=== PATIENT | male | born 1970 | race Caucasian/White ===

== ENCOUNTER 2016-06-19 06:00 | Day surgery (SDC) | payer OTHER ==
[2016-06-19] MEDS ORDERED: LACTATED RINGERS 1,000 ML ONE (06:48)
[2016-06-19] MEDS ORDERED: SODIUM CHL 0.9% 100ML MINI-BAG 100 ML IVPB ONE (06:48)
[2016-06-19] MEDS ORDERED: ceFAZolin SODIUM 1 GM VIAL ONE (06:48)
[2016-06-19] MEDS ORDERED: BUPIVACAINE 0.25% W/EPI 50 ML VIAL INJ ONE (07:29)
[2016-06-19] MEDS ORDERED: HEPARIN SODIUM (PORCINE) 10,000 UNITS/ML VIAL ONE (07:29)
[2016-06-19] MEDS ORDERED: fentaNYL CITRATE INJ 50 MCG/ML AMP ONE (07:36)
[2016-06-19] MEDS ORDERED: LIDOCAINE 2 % GEL 5 ML TUBE TOP ONE (07:36)
[2016-06-19] MEDS ORDERED: ROCURONIUM BROMIDE 10 MG/ML VIAL ONE (07:36)
[2016-06-19] MEDS ORDERED: GLUCAGON INJ 1 MG VIAL ONE (09:25)
--- NOTE | 2016-06-19 10:30 | OP ---
DATE OF PROCEDURE: 06/19/16 PREOPERATIVE DIAGNOSIS: 1. Symptomatic cholelithiasis. POSTOPERATIVE DIAGNOSIS: 1. Symptomatic cholelithiasis. 2. Chronic cholecystitis. 3. Obstructing choledocholithiasis. PROCEDURE: 1. Laparoscopic cholecystectomy with intraoperative cholangiography. SURGEON: Dakota Ayala MD. [employer]URAL STEEL DETAILER: None. ANESTHESIA: Local infiltration of 0.25% Marcaine with epinephrine and general endotracheal anesthesia. INDICATION: The patient is a 45-year-old male who has had approximately 2 months of right upper quadrant pain, fatty food intolerance, large amounts of flatus and belching and sonographically diagnosed cholelithiasis. The patient was brought to the Surgical Suite today for cholecystectomy after the risks, benefits and alternatives to the procedure were discussed and accepted. FINDINGS: Intraoperative cholangiography revealed a distal meniscus in the common bile duct which was slightly dilated including the intrahepatic. There was no flow into the duodenum even after the Glucagon injection. No strictures were identified in the biliary tree. No other intraarticular pathology was identified. DESCRIPTION OF PROCEDURE: After adequate general endotracheal anesthesia was obtained, the patient was prepped and draped in the usual sterile manner. Surgical time-out was taken. The supraumbilical area was infiltrated with local anesthesia. A vertical incision was made. Dissection was carried down through the skin and subcutaneous tissue to the midline fascia. Traction sutures were placed on either side of the midline. A small incision was made in the midline fascia and the peritoneum was opened bluntly. Mustapha trocar was introduced under direct vision into the abdominal cavity and fixed in place with the 20 mL balloon. CO2 was then insufflated until a pressure of 12 mmHg was reached and the abdomen was tympanitic in all four quadrants. When this was done, the laparoscope was introduced. The abdomen was inspected with the previously noted findings. The patient was then placed in reverse Trendelenburg position, turned to the left side. The upper abdominal ports were placed under direct vision. The gallbladder was grasped, retracted anteriorly and laterally. The neck of the gallbladder was retracted laterally. The triangle of Calot was then explored using blunt dissection. The cystic duct and cystic artery were identified and isolated. The cystic duct was hemoclipped once proximally. The cystic artery was hemoclipped twice proximally and once distally. A small incision was made in the cystic duct. The cholangiogram catheter was introduced through a separate stab wound in the right upper quadrant, introduced into the cystic duct and clipped in place. Cholangiograms were then taken using fluoroscopy which revealed the distal obstruction with the meniscus sign, so at this point 1 mg of Glucagon was given. After appropriate time, repeat cholangiograms showed no flow into the duodenum and the continuing distal obstruction. No other pathology was identified. At this point, the cystic duct catheter was used to aspirate approximately 20 mL of bile stained fluid. The catheter was then removed and the cystic duct was hemoclipped three times distally. The cystic duct was divided. The cystic artery was divided. A second arterial vessel was identified, clipped and divided and the gallbladder was then dissected free from the gallbladder bed of the liver using electrocautery. The gallbladder was removed from the infraumbilical port site in the usual manner under direct vision. When this was done, the subhepatic space and subphrenic space were irrigated copiously with saline. There was some oozing noted from the gallbladder bed of the liver which was easily controlled with electrocautery. When this was done, the subhepatic space was again inspected. Good hemostasis was noted there. The aubrey hepatis was inspected and no bleeding or bile leak was identified. The upper abdominal ports were removed under direct vision and good hemostasis was noted. At this point, the CO2, the laparoscope and the supraumbilical port were removed. The supraumbilical port site fascia was approximated with a single [id number] suture of 0 Vicryl. Subcutaneous tissue was irrigated with saline. Skin edges were approximated with 4-0 Vicryl subcuticular sutures, benzoin and Steri-Strips. Sterile dressings were applied. The patient was awakened and taken to the Recovery Room in stable condition. Estimated blood loss was less than 25 mL. The gastroenterology associates in [place] are being contacted to set up an urgent ERCP. #[id number] [facility]
[2016-06-19] MEDS ORDERED: HYDROcodone 5MG/APAP 325MG 1 EA TAB ONE (11:18)
[2016-06-19 11:37] VITALS: BP 125/85; TEMP 98.3; O2SAT 98
[2016-06-19] MEDS ORDERED: METOCLOPRAMIDE HCL INJ 10 MG/2 ML VIAL IV ONE (12:00)
[2016-06-19] MEDS ORDERED: PROPOFOL 200 MG/20 ML VIAL IV ONE (12:00)
[2016-06-19] MEDS ORDERED: NEOSTIGMINE METHYLSULFATE 1 MG/ML ML IV ONE (12:00)
[2016-06-19] MEDS ORDERED: ATROPINE SULFATE 0.4 MG/ML 1ML VIAL IV ONE (12:00)
== END 2016-06-19 11:35 | disposition home or self-care (01) ==
LOC: AMB 06:00
PROVIDERS: ATTEND Surgery
DX: K80.45 Calculus of bile duct with chronic cholecystitis with obstruction (principal); K21.9 Gastro-esophageal reflux disease without esophagitis; F17.210 Nicotine dependence, cigarettes, uncomplicated; Z88.8 Allergy status to other drugs, medicaments and biological substances; Z79.899 Other long term (current) drug therapy
CPT/HCPCS: 00790; 47563; 76000; 80053; 81001; 85025; J0690; J1610; J1644; J2710; J2765; J3010; J3490; J7050; J7120